=== PATIENT | male | born 1940 | race Caucasian/White ===

== ENCOUNTER 2017-06-26 20:42 | Observation (INO) ==
[2017-06-26] MEDS ORDERED: ONDANSETRON 4 MG/2 ML VIAL IV STA (21:36)
[2017-06-26] MEDS ORDERED: MORPHINE 2 MG/1 ML SYRINGE IV STA (21:36)
[2017-06-26] MEDS ORDERED: ONDANSETRON 4 MG/2 ML VIAL ONE (22:18)
[2017-06-26] MEDS ORDERED: MORPHINE 10 MG/1 ML VIAL ONE (22:19)
[2017-06-26] MEDS ORDERED: GLUCAGON 1 MG VIAL IM PRN (23:57)
[2017-06-26] MEDS ORDERED: ACETAMINOPHEN 325 MG TABLET PO PRN (23:57)
[2017-06-26] MEDS ORDERED: ONDANSETRON 4 MG/2 ML VIAL IV PRN (23:57)
[2017-06-26] MEDS ORDERED: DEXTROSE 50% 25 GM/50 ML VIAL IV PRN (23:57)
[2017-06-26] MEDS ORDERED: MORPHINE 10 MG/1 ML VIAL IV PRN (23:57)
[2017-06-27 00:42] LABS: Basophils % 0.4 % (0.0-0.8); Eosinophils % 0.4 % (0.00-10.9); Hematocrit 33.2 VOL% (42.0-52.0); Hemoglobin 10.7 GM/DL (14.0-18.0); Immature Granulocytes % 1.1 %; Immature Granulocytes Absolute 0.08 #; Lymphocytes # 1.6 10*3/uL (1.4-4.0); Lymphocytes % 21.6 % (21.2-54.2); Mean Corpuscular HGB Conc 32.2 GM/DL (32-36); Mean Corpuscular Hemoglobin 29 PG (27-34); Mean Platelet Volume 10.4 FL (9.6-12.0); Monocytes # 0.6 10*3/uL (0.11-0.8); Neutrophils % 68.5 % (38.7-73.9); Platelet Count 155 T/CUMM (130-400); Red Blood Count 3.65 MC/CUMM (3.8-5.5); Red Cell Distribution Width 16.7 % (9.3-17.3); White Blood Count 7.4 T/CUMM (4-12)
[2017-06-27 06:10] LABS: Basophils % 0.2 % (0.0-0.8); Eosinophils % 0.6 % (0.00-10.9); Hematocrit 33.1 VOL% (42.0-52.0); Hemoglobin 10.4 GM/DL (14.0-18.0); Immature Granulocytes % 0.5 %; Immature Granulocytes Absolute 0.03 #; Lymphocytes # 1.4 10*3/uL (1.4-4.0); Lymphocytes % 21.7 % (21.2-54.2); Mean Corpuscular HGB Conc 31.4 GM/DL (32-36); Mean Corpuscular Hemoglobin 29 PG (27-34); Mean Corpuscular Volume 91.9 FL (87-102); Mean Platelet Volume 9.7 FL (9.6-12.0); Monocytes # 0.6 10*3/uL (0.11-0.8); Monocytes % 9.8 % (1.7-12.7); Neutrophils # 4.3 10*3/uL (1.4-7.4); Neutrophils % 67.2 % (38.7-73.9); Platelet Count 140 T/CUMM (130-400); Red Cell Distribution Width 16.8 % (9.3-17.3); White Blood Count 6.5 T/CUMM (4-12)
[2017-06-27 06:39] LABS: Calcium 8.3 MG/DL (8.5-10.1); Osmolality,Calculated 297.1 MOS/KG (273-304); Potassium 4.9 MMOL/L (3.5-5.1)
[2017-06-27] MEDS: PANTOPRAZOLE 40 MG TABLET PO SCH (09:15)
[2017-06-27] MEDS: INSULIN LISPRO 100 UNIT/ML SUBCUT SCH ×3 (09:16→21:47)
[2017-06-28] MEDS ORDERED: ALBUTEROL 2.5 MG/3 ML NEB RESP TX PRN (01:28)
[2017-06-28 07:13] VITALS: BP 111/52
[2017-06-28] MEDS: INSULIN LISPRO 100 UNIT/ML SUBCUT SCH (09:16)
[2017-06-28] MEDS: PANTOPRAZOLE 40 MG TABLET PO SCH (09:20)
== END 2017-06-28 10:37 | disposition home or self-care (01) ==
LOC: EDUNIT# → EDBD → N.EDINP 20:42 → N.ED 20:42 → N.5E 06-27 00:32
PROVIDERS: ADMIT Family Medicine; ATTEND Family Medicine